=== PATIENT | male | born 1960 | race African-American/Black ===

== ENCOUNTER 2016-12-02 07:20 | Inpatient (IN) | payer MEDICAID ==
[~2016-12-02] VITALS: Ht 177.8 cm; Wt 104.3 kg
[~2016-12-02 07:20] MED LIST: ALBU0.0912 IH; CARV12.52 PO; FURO40TA9 PO
[2016-12-02 07:21] VITALS: BP 142/97
--- NOTE | 2016-12-02 07:28 | NUR ---
PT TAKEN TO BED 3
--- NOTE | 2016-12-02 07:35 | NUR ---
PATIENT PRESENTS TO ED WITH SOB, PRODUCTIVE COUGH . PT STATES . DENIES N/V/D; SKIN IS PINK/WARM/DRY; AAOX4 WITH EVEN AND STEADY GAIT; LUNGS COARSE RALES THROUGH OUT ALL JUNIOR; HR EVEN AND IRREGULAR; PT DENIES ANY FEVER, CP, ; PATIENT STATES PAIN OF 04/10 AT THIS TIME PAIN TO WRIST AND FINGERS FROM GOUT; VSS; PATIENT POSITIONED FOR COMFORT; HOB ELEVATED; BEDRAILS UP X2; BED DOWN. ER MD MADE AWARE OF PT STATUS.
[2016-12-02] MEDS ORDERED: FUROSEMIDE 40 MG/4 ML VIAL IVP ONE (07:40)
[2016-12-02] MEDS ORDERED: NITROGLYCERIN 2% 1 GM PKT TP ONE (07:40)
[2016-12-02] MEDS ORDERED: SODIUM CHLORIDE FLUSH 10 ML SYR IVF ONE (07:40)
--- NOTE | 2016-12-02 07:40 | NUR ---
Oxygen applied at 2 L per minute via . 02 saturation % by pulse oximetry PRIOR TO O2
[2016-12-02 07:57] LABS: BASOPHILS # (AUTO) 0.1 K/uL (0.00-0.22); BASOPHILS % (AUTO) 0.8 % (0.0-2.0); EOSINOPHILS # (AUTO) 0.2 K/uL (0-0.4); EOSINOPHILS % (AUTO) 2.4 % (0.0-4.0); HEMATOCRIT 35.5 % (36-52); HEMOGLOBIN 11.4 g/dL (12.0-18.0); LYMPHOCYTES % (AUTO) 12.7 % (20.5-51.1); MEAN CORPUSCULAR HEMOGLOBIN 30 pg (27-31); MEAN CORPUSCULAR HGB CONC 32 g/dL (33-37); MEAN CORPUSCULAR VOLUME 94 fL (80-94); MONOCYTES # (AUTO) 0.5 K/uL (0.8-1.0); MONOCYTES % (AUTO) 6.3 % (1.7-9.3); NEUTROPHILS # (AUTO) 5.8 K/uL (1.8-7.7); NEUTROPHILS % (AUTO) 77.8 % (42.2-75.2); PLATELET COUNT (AUTO) 163 K/uL (140-450); RED BLOOD CELL COUNT(AUTO) 3.79 MIL/uL (4.20-6.10); RED CELL DISTRIBUTION WIDTH 19.2 % (11.6-13.7); WHITE BLOOD COUNT (AUTO) 7.6 K/uL (4.8-10.8)
--- NOTE | 2016-12-02 08:00 | NUR ---
X-Ray at bedside.
[2016-12-02 08:15] LABS: ANION GAP 13.4 (8-16); CALCIUM 8.6 mg/dL (8.5-10.1); CARBON DIOXIDE 24.5 mmol/L (21-32); CREATININE 1.7 mg/dL (0.6-1.3); TOTAL BILIRUBIN 0.8 mg/dL (0.0-1.0); TOTAL PROTEIN, SERUM 7.1 g/dL (6.4-8.2)
[2016-12-02 08:19] LABS: POTASSIUM 2.9 mmol/L (3.5-5.1)
[2016-12-02 08:27] LABS: INR 1.2 (0.8-1.2); PROTHROMBIN TIME 12.1 secs (10.8-13.4)
[2016-12-02] MEDS ORDERED: POTASSIUM CHLORIDE 10 MEQ TABER PO ONE (08:30)
[2016-12-02] MEDS ORDERED: ALBUTEROL HFA MDI 90 MCG/ACTUATION 8 GM INH PRN (09:40)
[2016-12-02] MEDS ORDERED: LORazepam 2 MG/ML VIAL IVP PRN (09:40)
[2016-12-02] MEDS ORDERED: ACETAMINOPHEN 325 MG TAB PO PRN (09:40)
[2016-12-02] MEDS ORDERED: HYDROcodone/APAP 5/325 MG 1 TAB TAB PO PRN (09:40)
[2016-12-02] MEDS ORDERED: ONDANSETRON 4 MG/2 ML VIAL IVP PRN (09:40)
[2016-12-02] MEDS ORDERED: MORPHINE SULFATE 2 MG/ML SYR IVP PRN (09:40)
--- NOTE | 2016-12-02 09:53 | NUR ---
ATE 100% OF BREAKFAST
--- NOTE | 2016-12-02 10:01 | NUR ---
Pt transferred to Tele via [facility]---REPORT GIVEN TO SOFIA GREEN
[2016-12-02 10:25] VITALS: BP 121/87
--- NOTE | 2016-12-02 10:25 | NUR ---
PT ADMITTED FROM ER, ALERT AND ORIENTED X4. WITH O2 AT 2L/MIN VIA NC. NO SIGNS OF ACUTE DISTRESS. SKIN IS WARM AND DRY. NO EPISODES OF ANY NAUSEA OR VOMITING AT THIS TIME. ABLE TO VOID INDEPENDENTLY. NO C/O ANY PAIN OR DISCOMFORT AT THIS TIME. ALL NEEDS ATTENDED, SAFETY PRECAUTIONS MAINTAINED. ORIENTED TO HOSPITAL ENVIRONMENT, PERSONAL BELONGINGS AT BEDSIDE. CALL LIGHT WITHIN REACH.
[2016-12-02 16:00] VITALS: BP 134/88
[2016-12-02] MEDS: CARVEDILOL 3.125 MG TAB PO SCH (16:17)
[2016-12-02] MEDS: FUROSEMIDE 40 MG TAB PO SCH (16:22)
[2016-12-02 16:51] LABS: CREATINE KINASE MB 1.8 ng/mL (0-3.6)
[2016-12-02] MEDS: ALBUTEROL 0.083% 2.5 MG/3 ML NEBU INH PRN (17:04)
--- NOTE | 2016-12-02 18:51 | NUR ---
PT AWAKE AND RESPONSIVE, NO SIGNS OF ACUTE DISTRESS. WILL ENDORSE TO ONCOMING PUNCH PRESS OPERATOR NURSE FOR CONTINUITY OF CARE.
--- NOTE | 2016-12-02 19:30 | NUR ---
RECEIVED REPORT FROM SOFIA RN AT BEDSIDE. PT IS ALERT AWAKE ORIENTED X4. INITIAL ASSESSMENT DONE. NO S/S OF RESPIRATORY DISTRESS OR SOB NOTED. ON O2 @ 2L/MIN VIA NASAL CANULA. NO C/O PAIN OR ANY DISCOMFORT AT THIS TIME. PLAN OF CARE REVIEWED TO PT AND VERBALIZED UNDERSTANDING. CALL LIGHT WITHIN REACH. WILL CONTINUE TO MONITOR.
[2016-12-02 20:00] VITALS: BP 131/82
--- NOTE | 2016-12-02 20:10 | NUR ---
NO DISTRESS/SOB/WHEEZING NOTED AT THIS TIME. NO INDICATION FOR HHN PRN TX.
[2016-12-03] VITALS: BP 136/83
--- NOTE | 2016-12-03 00:30 | NUR ---
PT IS SLEEPING RIGHT NOW BUT EASILY AROUSABLE. NO S/S OF ANY DISCOMFORT AT THIS TIME. ALL NEEDS ARE ATTENDED. CALL LIGHT WITHIN REACH. WILL CONTINUE TO MONITOR.
[2016-12-03 04:00] VITALS: BP 129/78
--- NOTE | 2016-12-03 05:30 | NUR ---
AM CARE DONE BY HIMSELF. BED LINEN CHANGED. INSTRUCTED PT TO REPOSITION. KEPT CLEAN AND DRY. CALL LIGHT WITHIN REACH. WILL CONTINUE TO MONITOR.
[2016-12-03 06:41] LABS: BASOPHILS % (AUTO) 0.6 % (0.0-2.0); EOSINOPHILS # (AUTO) 0.2 K/uL (0-0.4); EOSINOPHILS % (AUTO) 3.3 % (0.0-4.0); HEMATOCRIT 33.9 % (36-52); HEMOGLOBIN 11.1 g/dL (12.0-18.0); LYMPHOCYTES # (AUTO) 0.8 K/uL (2.0-11.5); LYMPHOCYTES % (AUTO) 12.1 % (20.5-51.1); MEAN CORPUSCULAR HEMOGLOBIN 31 pg (27-31); MEAN CORPUSCULAR HGB CONC 33 g/dL (33-37); MEAN CORPUSCULAR VOLUME 94 fL (80-94); MONOCYTES # (AUTO) 0.5 K/uL (0.8-1.0); NEUTROPHILS # (AUTO) 5.3 K/uL (1.8-7.7); PLATELET COUNT (AUTO) 148 K/uL (140-450); RED BLOOD CELL COUNT(AUTO) 3.61 MIL/uL (4.20-6.10); RED CELL DISTRIBUTION WIDTH 19.2 % (11.6-13.7); WHITE BLOOD COUNT (AUTO) 6.9 K/uL (4.8-10.8)
[2016-12-03 07:05] LABS: ANION GAP 12.2 (8-16); CALCIUM 8.5 mg/dL (8.5-10.1); CARBON DIOXIDE 28.1 mmol/L (21-32); CREATININE 1.6 mg/dL (0.6-1.3); POTASSIUM 3.3 mmol/L (3.5-5.1)
[2016-12-03 07:09] LABS: MAGNESIUM 1.7 mg/dL (1.8-2.4); PHOSPHORUS 2.6 mg/dL (2.5-4.9)
--- NOTE | 2016-12-03 07:20 | NUR ---
PT HAS NO S/S OF ANY DISCOMFORT. PLAN OF CARE ENDORSE TO SOFIA RN AT BEDSIDE FOR CONTINUITY OF CARE.
--- NOTE | 2016-12-03 07:21 | NUR ---
PT ALERT AND ORIENTED X4. WITH O2 AT 2L/MIN VIA NC. NO SIGNS OF ACUTE DISTRESS. SKIN IS WARM AND DRY. NO EPISODES OF ANY NAUSEA OR VOMITING AT THIS TIME. ABLE TO VOID INDEPENDENTLY. NO C/O ANY PAIN OR DISCOMFORT AT THIS TIME. ALL NEEDS ATTENDED, SAFETY PRECAUTIONS MAINTAINED. CALL LIGHT WITHIN REACH.
[2016-12-03] MEDS: ALBUTEROL 0.083% 2.5 MG/3 ML NEBU INH PRN (07:45)
[2016-12-03 08:00] VITALS: BP 133/71
--- NOTE | 2016-12-03 08:56 | NUR ---
CM NOTE PER CNA GNA DI, REVIEWS SHOULD BE SENT TO [facility]. FAXED INITIAL REVOEW TO [facility] [phone]
[2016-12-03] MEDS ORDERED: MUPIROCIN 2% OINT 22 GM TUBE TP SCH (09:38)
[2016-12-03] MEDS: CARVEDILOL 3.125 MG TAB PO SCH (09:45)
[2016-12-03] MEDS: FUROSEMIDE 40 MG TAB PO SCH (09:45)
--- NOTE | 2016-12-03 10:05 | NUR ---
PATIENT HAS BEEN SCREENED AND CATEGORIZED MODERATE NUTRITION RISK. PATIENT WILL BE SEEN WITHIN 3-5 DAYS OF ADMISSION. 12/04/16-12/06/[address]
[2016-12-03 10:17] LABS: CREATINE KINASE MB 1.4 ng/mL (0-3.6)
--- NOTE | 2016-12-03 11:52 | NUR ---
REPORTED AM LAB RESULTS TO Honey QUISPE RECEIVED ORDER, K DIAZ 40MEQ POX1 AND MAG MATHEW 2GM IV X1. NOTED AND CARRIED OUT.
[2016-12-03 11:59] VITALS: BP 150/88
[2016-12-03] MEDS ORDERED: MAG SULF 2000 MG/WATER PREMIX 50 ML IV SCH (12:15)
[2016-12-03] MEDS ORDERED: POTASSIUM CHLORIDE 10 MEQ TABER PO SCH (12:15)
--- NOTE | 2016-12-03 13:53 | NUR ---
WAS SEEN BY Honey QUISPE NEW LAB ORDERS RECEIVED. NOTED AND CARRIED OUT.
--- NOTE | 2016-12-03 15:45 | NUR ---
PT ALERT AND RESPONSIVE, NO SIGNS OF ACUTE DISTRESS. PT REQUESTED TO SIGN AMA, RISKS AND BENEFITS EXPLAINED. PT VERBALIZED UNDERSTANDING. PERSONAL BELONGINGS WITH PT UPON DISCHARGE. IV LINE AND TELE LEADS REMOVED, WRIST BANDS ALSO REMOVED. ESCORTED TO FRONT LOBBY AND TO GO HOME WITH PUBLIC TRANSPORT.
--- NOTE | 2016-12-03 15:47 | NUR ---
NOTIFIED Keiko QUISPE ON CRITICAL FINDINGS
--- NOTE | 2016-12-03 15:53 | NUR ---
DR REE Méndez PAGED TO BE MADE AWARE. CHARGE NURSE EAR NOSE THROAT PHYSICIAN ALSO MADE AWARE.
[2016-12-04] MEDS ORDERED: MUPIROCIN 2% OINT 22 GM TUBE TP SCH (09:00)
[2016-12-04] MEDS ORDERED: CHLORHEXADINE GLUC 2% CLOTH TP SCH (09:00)
== END 2016-12-03 15:45 | disposition left against medical advice (07) | DRG 194 ==
LOC: MED 07:20 → MTU 09:47
PROVIDERS: ADMIT Preventive Medicine Preventive Medicine/Occupational Environmental Medicine; ATTEND Preventive Medicine Preventive Medicine/Occupational Environmental Medicine
DX: I13.0 Hypertensive heart and chronic kidney disease with heart failure and stage 1 through stage 4 chronic kidney disease, or unspecified chronic kidney disease (principal); J96.00 Acute respiratory failure, unspecified whether with hypoxia or hypercapnia; N17.9 Acute kidney failure, unspecified; E44.0 Moderate protein-calorie malnutrition; I50.43 Acute on chronic combined systolic (congestive) and diastolic (congestive) heart failure; J44.9 Chronic obstructive pulmonary disease, unspecified; D64.9 Anemia, unspecified; N18.9 Chronic kidney disease, unspecified; I25.10 Atherosclerotic heart disease of native coronary artery without angina pectoris; E87.6 Hypokalemia; E83.41 Hypermagnesemia; E88.09 Other disorders of plasma-protein metabolism, not elsewhere classified; J98.11 Atelectasis; K76.1 Chronic passive congestion of liver; Z53.21 Procedure and treatment not carried out due to patient leaving prior to being seen by health care provider; Z95.0 Presence of cardiac pacemaker; Z22.322 Carrier or suspected carrier of Methicillin resistant Staphylococcus aureus; Z79.899 Other long term (current) drug therapy; Z68.33 Body mass index [BMI] 33.0-33.9, adult
CPT/HCPCS: 36415; 71010; 76770; 80048; 80053; 82550; 82553; 83735; 83880; 84100; 84484; 85025; 85610; 85730; 87081; 93005; 94640; 96374; 99285; J1940; J3475; J7613; Q0092